=== PATIENT | female | born 1995 | race Two or more races ===

== ENCOUNTER 2023-02-28 13:57 | Inpatient (IN) | payer OTHER ==
[~2023-02-28] VITALS: Ht 160 cm; Wt 65.3 kg
[2023-02-28] MEDS ORDERED: PRENATAL TABLE1 EAC1 PO (15:00)
== END 2023-03-01 10:37 | disposition home or self-care (01) | DRG 833 ==
LOC: LDR 13:57
PROVIDERS: ADMIT Obstetrics & Gynecology Gynecology; ATTEND Obstetrics & Gynecology Gynecology
PROC: 4A1HXCZ Monitoring of Products of Conception, Cardiac Rate, External Approach (ICD-10-PCS; principal; 2023-02-28)
DX: O46.8X3 Other antepartum hemorrhage, third trimester (principal); Z3A.36 36 weeks gestation of pregnancy; Z20.822 Contact with and (suspected) exposure to COVID-19